=== PATIENT | female | born 1990 | race American Indian/Alaskan Native ===

== ENCOUNTER 2018-01-27 10:14 | Emergency (ER) | payer MEDICAID ==
[2018-01-27] MEDS ORDERED: NACL 0.9% 1000 ML 1,000 ML IV ONE (12:03)
--- NOTE | 2018-01-27 12:06 | Emergency Department Report ---
Blank Doc - Documentation Documentation: 27-year-old female with a past medical history hypertension presents complaining of the lightheaded and dizzy after physical activity and decreased by mouth intake. Patient was recently placed on Phentermine by her primary care doctor for weight loss. Patient has decreased her food intake and intake times 1 week in an attempt to lose weigh. Pt has been drinking lots of monster energy drinks. She is not drinking much water. Today during her [employer] agility test patient became faint, dizzy, had subsequent episodes of vomiting. mild tachy on vitals labs, ekg, ns ordered midlevel to follow
[2018-01-27 12:32] LABS: Basophils % (Auto) 0.3 % (0.0-1.8); Eosinophils % (Auto) 0.2 % (0.0-4.3); Hematocrit 41.9 % (30.3-42.9); Hemoglobin 14.1 gm/dl (10.1-14.3); Lymphocytes # (Auto) 1.1 K/mm3 (1.2-5.4); Lymphocytes % (Auto) 10.9 % (13.4-35.0); Mean Corpuscular HGB Conc 34 % (30-34); Mean Corpuscular Hemoglobin 29 pg (28-32); Mean Corpuscular Volume 86 fl (79-97); Monocytes # (Auto) 0.4 K/mm3 (0.0-0.8); Monocytes % (Auto) 4.3 % (0.0-7.3); Platelet Count 333 K/mm3 (140-440); Red Blood Count 4.87 M/mm3 (3.65-5.03)
[2018-01-27 12:49] LABS: BUN/Creatinine Ratio 11; Blood Urea Nitrogen 11 mg/dL (7-17); Calcium 9.9 mg/dL (8.4-10.2); Hemolysis Index 12
[2018-01-27 13:31] VITALS: BP 127/81
--- NOTE | 2018-01-27 13:39 | Emergency Department Report ---
ED General Adult HPI - General Chief complaint: Dizziness Stated complaint: SOB DIFF BREATHING Time Seen by Provider: 01/27/18 11:58 Source: patient Mode of arrival: Wheelchair Limitations: No Limitations - History of Present Illness Initial comments: 27-year-old female past medical history obesity, hypertension since with complaint of dizziness. Denies any syncopal episodes. As per patient she has been eating and drinking less taking diet supplements for weight loss specifically phentermine that was prescribed by her primary care physician and has been drinking a lot of energy drinks. Patient is awake alert and oriented 3. Denies chest pain or shortness of breath. Accompanied by family members at bedside. Denies any fevers or chills or palpitations at this time. Onset/Timin -: week(s) Worsens with: none Associated Symptoms: denies other symptoms Treatments Prior to Arrival: none - Related Data Allergies Allergy/AdvReac Type Severity Reaction Status Date / Time No Known Allergies Allergy Unverified 01/27/18 10:41 ED Review of Systems ROS: Stated complaint: SOB DIFF BREATHING Other details as noted in HPI Constitutional: denies: chills, fever Eyes: denies: eye pain, eye discharge, vision change ENT: denies: ear pain, throat pain Respiratory: denies: cough, shortness of breath, wheezing Cardiovascular: denies: chest pain, palpitations Endocrine: no symptoms reported, increased thirst Gastrointestinal: denies: abdominal pain, nausea, diarrhea Genitourinary: denies: urgency, dysuria, discharge Musculoskeletal: denies: back pain, joint swelling, arthralgia Skin: denies: rash, lesions Neurological: denies: headache, weakness, paresthesias Psychiatric: denies: anxiety, depression Hematological/Lymphatic: denies: easy bleeding, easy bruising ED Past Medical Hx - Past Medical History Previous Medical History?: Yes Hx Hypertension: Yes - Surgical History Past Surgical History?: Yes Additional Surgical History: D and C - Social History Smoking Status: Never Smoker Substance Use Type: None ED Physical Exam - General Limitations: No Limitations General appearance: alert, in no apparent distress - Head Head exam: Present: atraumatic, normocephalic - Eye Eye exam: Present: normal appearance, PERRL, EOMI - ENT ENT exam: Present: mucous membranes moist - Neck Neck exam: Present: normal inspection - Respiratory Respiratory exam: Present: normal lung sounds bilaterally. Absent: respiratory distress - Cardiovascular Cardiovascular Exam: Present: regular rate, normal rhythm. Absent: systolic murmur, diastolic murmur, rubs, gallop - GI/Abdominal GI/Abdominal exam: Present: soft, normal bowel sounds - Extremities Exam Extremities exam: Present: normal inspection - Back Exam Back exam: Present: normal inspection - Neurological Exam Neurological exam: Present: alert, oriented X3 - Psychiatric Psychiatric exam: Present: normal affect, normal mood - Skin Skin exam: Present: warm, dry, intact, normal color. Absent: rash ED Course Vital Signs 01/27/18 01/27/18 10:35 13:30 Temperature 98.5 F 97.8 F Pulse Rate 112 H 79 Respiratory 16 14 Rate Blood Pressure 119/81 Blood Pressure 127/81 [Left] O2 Sat by Pulse 98 99 Oximetry ED Medical Decision Making - Lab Data Result diagrams: 01/27/18 12:05 01/27/18 12:08 - Medical Decision Making A/P: Tachycardia, secondary effect of phentermine and energy drinks, dehydration 1-I advised patient to remain well-hydrated and discussed her use of phentermine with her primary care doctor as this likely is contributing to her symptoms 2-vital signs stabilized. Patient tolerating by mouth fluid. EKG unremarkable. Labs including creatinine kinase unremarkable Critical care attestation.: If time is entered above; I have spent that time in minutes in the direct care of this critically ill patient, excluding procedure time. ED Disposition Clinical Impression: Dizziness, Use of energy drinks, Tachycardia, Medication side effect Disposition: -01 TO HOME OR SELFCARE Is pt being admited?: No Does the pt Need Aspirin: No Condition: Stable Instructions: Amphetamine (By mouth), Phentermine (By mouth), Atrial Tachycardia (ED), Dehydration (ED) Referrals: [facility] [Other] - 3-5 Days Forms: Accompanied Note, Work/School Release Form(ED) Time of Disposition: 13:41
== END 2018-01-27 14:28 | disposition home or self-care (01) ==
LOC: ED 10:14
DX: T50.5X5A Adverse effect of appetite depressants, initial encounter (principal); R42 Dizziness and giddiness; Y92.89 Other specified places as the place of occurrence of the external cause; I10 Essential (primary) hypertension
CPT/HCPCS: 36415; 80048; 82550; 83735; 84703; 85025; 93005; 93010; 96360; 96361; 99284; J7030